=== PATIENT | female | born 1995 | race Hispanic/Latino ===

== ENCOUNTER → 2016-10-02 | Outpatient (CLI) | payer OTHER | LOC: YCFC.O 08:37 | PROVIDERS: ATTEND Nurse Practitioner Family | DX: E03.9 Hypothyroidism, unspecified (principal); E83.52 Hypercalcemia ==

== ENCOUNTER → 2016-10-03 | Outpatient (CLI) | payer OTHER | LOC: RESP 10:25 | PROVIDERS: ATTEND Nurse Practitioner Family | DX: I49.9 Cardiac arrhythmia, unspecified (principal) ==

== ENCOUNTER 2017-02-16 14:16 | Emergency (ER) | payer OTHER ==
[2017-02-16 14:36] VITALS: TEMP 97
--- NOTE | 2017-02-16 14:38 | ED.PDOC ---
History of Present Illness - General Chief Complaint: Problem Stated Complaint: burning and pressure with urine Time Seen by Provider: 02/16/17 14:38 Source: patient Exam Limitations: no limitations - History of Present Illness Initial Comments: Dorota Sifuentes 21 y/o female stated that she had burning/and pressure on urination which started this morning;denies fever chills, flank pain,nausea or vomiting,no vaginal discharge,or pelvic pain Timing/Duration: this morning Quality: mild Onset Location: unknown Radiation: none Activites at Onset: none Prior abdominal problems: none Sexual intercourse history: not active Improving Factors: nothing Worsening Factors: nothing Associated Symptoms: denies symptoms Allergies/Adverse Reactions: Allergies NO KNOWN ALLERGY Allergy (Verified 02/16/17 14:33) Home Medications: Ambulatory Orders Levothyroxine Sodium [Synthroid] 100 mcg PO DAILY #0 02/13/14 Nitrofurantoin Monohydrate Mac [Macrobid] 100 mg PO BID #14 cap 02/16/17 Review of Systems - Review of Systems Constitutional: States: no symptoms reported EENTM: States: no symptoms reported Respiratory: States: no symptoms reported Cardiology: States: no symptoms reported Gastrointestinal/Abdominal: States: no symptoms reported Genitourinary: States: see HPI Musculoskeletal: States: no symptoms reported Skin: States: no symptoms reported Neurological: States: no symptoms reported Endocrine: States: no symptoms reported Hematologic/Lymphatic: States: no symptoms reported Past Medical History (General) - Patient Medical History Hx Seizures: No Hx Stroke: No Hx Dementia: No Hx Asthma: No Hx of COPD: No Hx Cardiac Disorders: No Hx Congestive Heart Failure: No Hx Pacemaker: No Hx Hypertension: No Hx Thyroid Disease: No Hx Diabetes: No Hx Gastroesophageal Reflux: No Hx Renal Disease: No Hx Cancer: No Hx of HIV: No Hx Hepatitis C: No Hx MRSA: No Hx Other PMH: Yes - hypothyroidism Surgical History: no surgical history - Vaccination History Hx Tetanus, Diphtheria Vaccination: Yes Hx Influenza Vaccination: No Hx Pneumococcal Vaccination: No Immunizations Up to Date: Yes - Social History Hx Tobacco Use: No Hx Chewing Tobacco Use: No Hx Alcohol Use: No Hx Substance Use: No Hx Substance Use Treatment: No Hx Depression: No Feels Threatened In Home Enviroment: No Feels Threatened In a Relationship: No Hx Physical Abuse: No Hx Emotional Abuse: No Hx Suspected Abuse: No - Female History Patient is a Female of Child Bearing Age (10 -59 yrs old): Yes Hx Last Menstrual Period: 02/07/17 Patient : No Family Medical History - Family History Mother Family History: No Known Living Status: Still Living Hx Family;Other: Thyroid disease Physical Exam - Physical Exam General Appearance: Alert, No apparent distress Eyes, Ears, Nose, Throat Exam: PERRL/EOMI, normal ENT inspection, TMs normal, pharynx normal Neck: non-tender, full range of motion, supple Cardiovascular/Respiratory: regular rate, rhythm, no M/R/G, normal peripheral pulses, normal breath sounds Gastrointestinal/Abdominal: normal bowel sounds, non tender, soft, no organomegaly Back Exam: normal inspection, no CVA tenderness Extremity: normal range of motion, non-tender, normal inspection, no calf tenderness Neurologic: alert, normal mood/affect, oriented x 3 Skin Exam: normal color, warm/dry Lymphatic: no adenopathy Progress - Progress Progress: 02/16/17 14:47 Vital Signs - 8 hr 02/16/17 14:33 Temperature 97 F L Pulse Rate [ 80 Left Radial] Respiratory 18 Rate Blood Pressure 114/74 [Left Arm] O2 Sat by Pulse 99 Oximetry - Results/Orders Results/Orders: 02/16/17 14:45 URINE CULTURE W/COLONY COUNT Stat Laboratory Results - last 24 hr 02/16/17 14:45 Urine Color Yellow Urine Appearance Cloudy H Urine pH 6.5 Ur Specific [place] 1.010 Urine Protein Trace Urine Glucose (UA) Negative Urine Ketones Negative Urine Blood Moderate H Urine Nitrite Negative Urine Bilirubin Negative Urine Urobilinogen 0.2 Ur Leukocyte Esterase Small H Urine RBC 10-20 H Urine WBC Tntc H Ur Epithelial Cells 0-1 Urine Bacteria 1+ Departure - Departure Clinical Impression: Urinary tract infection Qualifiers: Urinary tract infection type: acute cystitis Hematuria presence: with hematuria Qualified Code(s): N30.01 - Acute cystitis with hematuria Time of Disposition: 15:33 Disposition: Discharge to Home or Self Care Condition: Good Departure Forms: ED Discharge - Pt. Copy, Patient Portal Self Enrollment Instructions: DI for Urinary Tract Infection (UTI) Referrals: Marielle Swan NP [Primary Care Provider] - 1-2 Weeks Prescriptions: Nitrofurantoin Monohydrate Mac [Macrobid] 100 mg PO BID #14 cap Home Medications: Ambulatory Orders Levothyroxine Sodium [Synthroid] 100 mcg PO DAILY #0 02/13/14 Nitrofurantoin Monohydrate Mac [Macrobid] 100 mg PO BID #14 cap 02/16/17 Additional Instructions: Return to emergency room as needed;Follow up with primary md 02/19/2017 call for appointment
[2017-02-16 15:46] VITALS: BP 122/74; O2SAT 98
== END 2017-02-16 15:46 | disposition home or self-care (01) ==
LOC: ER 14:16
DX: N30.01 Acute cystitis with hematuria (principal); E03.9 Hypothyroidism, unspecified; Z79.899 Other long term (current) drug therapy

== ENCOUNTER → 2017-04-22 | Outpatient (CLI) | payer OTHER | END | disposition home or self-care (01) | LOC: LAB.O 09:38 | DX: E03.9 Hypothyroidism, unspecified (principal); R53.83 Other fatigue ==

== ENCOUNTER → 2017-06-17 | Outpatient (CLI) | payer OTHER | END | disposition home or self-care (01) | LOC: LAB.O 14:48 | DX: E03.9 Hypothyroidism, unspecified (principal) ==

== ENCOUNTER → 2017-07-21 | Outpatient (CLI) | payer OTHER | END | disposition home or self-care (01) | LOC: LAB.O 10:26 | PROVIDERS: ATTEND Otolaryngology | DX: E06.3 Autoimmune thyroiditis (principal); E83.52 Hypercalcemia ==

== ENCOUNTER → 2017-08-05 | Outpatient (CLI) | payer OTHER | END | disposition home or self-care (01) | LOC: LAB.O 11:50 | PROVIDERS: ATTEND Otolaryngology | DX: E83.52 Hypercalcemia (principal); E06.3 Autoimmune thyroiditis ==

== ENCOUNTER 2017-09-25 17:12 | Emergency (ER) | payer OTHER ==
[2017-09-25] MEDS ORDERED: IBUPROFEN SUSP 100 MG/5 ML UD PO ONE (18:21)
--- NOTE | 2017-09-25 18:24 | ED.PDOC ---
History of Present Illness - General Chief Complaint: General Stated Complaint: spitting up blood Time Seen by Provider: 09/25/17 18:21 Source: patient Exam Limitations: no limitations - History of Present Illness Initial Comments: PT REPORTS A FEW EPISODES OF SPITTING UP BLOOD WHEN SHE CLEARS HER THROAT. PT HAD A PARATHYROIDECTOMY 1 WEEK AGO AND HAS SEVERAL NOSEBLEEDS SINCE THE SURGERY. PT HAD HER FOLLOW UP APPT TODAY WITH DR. RODRIGUEZ WHO USED SILVER NITRATE TO CAUTERIZE HER NASAL MUCOSA. PT DENIES SOB OR COUGH. Severity: mild Improving Factors: nothing Worsening Factors: nothing Associated Symptoms: other - NOSE BLEEDS Allergies/Adverse Reactions: Allergies NO KNOWN ALLERGY Allergy (Verified 02/16/17 14:33) Home Medications: Ambulatory Orders Levothyroxine Sodium [Synthroid] 125 mcg PO DAILY #0 02/13/14 Review of Systems - Review of Systems Constitutional: Denies: chills, fever EENTM: States: throat pain, other - EPISTAXIS Respiratory: Denies: cough, short of breath Cardiology: Denies: chest pain, palpitations Past Medical History (General) - Patient Medical History Hx Seizures: No Hx Stroke: No Hx Dementia: No Hx Asthma: No Hx of COPD: No Hx Cardiac Disorders: No Hx Congestive Heart Failure: No Hx Pacemaker: No Hx Hypertension: No Hx Thyroid Disease: Yes Hx Diabetes: No Hx Gastroesophageal Reflux: No Hx Renal Disease: No Hx Cancer: No Hx of HIV: No Hx Hepatitis C: No Hx MRSA: No Surgical History: other - PARATHYROIDECTOMY 1 WEEK AGO - Vaccination History Hx Tetanus, Diphtheria Vaccination: Yes Hx Influenza Vaccination: Yes Hx Pneumococcal Vaccination: No - Social History Hx Tobacco Use: No Hx Chewing Tobacco Use: No Hx Alcohol Use: No Hx Substance Use: No Hx Substance Use Treatment: No Hx Depression: No Hx Physical Abuse: No Hx Emotional Abuse: No Hx Suspected Abuse: No - Female History Patient is a Female of Child Bearing Age (10 -59 yrs old): Yes Hx Last Menstrual Period: 02/07/17 Patient : Yes Expected Date of Delivery:: 02/19/18 Hx Gestational Age: 19 Family Medical History - Family History Mother Family History: No Known Living Status: Still Living Hx Family;Other: Thyroid disease Physical Exam - Physical Exam General Appearance: Alert, Comfortable, No apparent distress, Well Developed, Well Groomed, Well Hydrated Ears, Nose, Throat: hearing grossly normal, normal ENT inspection, normal pharynx Neck: full range of motion, normal inspection, other - HORIZONTAL SURGICAL INCISION OVER THE THYROID WITH MINIMAL SURROUNDING TENDERNESS Respiratory: lungs clear, normal breath sounds, no respiratory distress Cardiovascular/Chest: regular rate, rhythm, no murmur Neurologic: alert, normal mood/affect, oriented x 3 Skin Exam: normal color, warm/dry Departure - Departure Clinical Impression: Epistaxis, Sore throat Time of Disposition: 18:28 Disposition: Discharge to Home or Self Care Condition: Good Departure Forms: ED Discharge - Pt. Copy, Patient Portal Self Enrollment Referrals: Domenica Dickey MD [Primary Care Provider] - 1-2 Weeks Home Medications: Ambulatory Orders Levothyroxine Sodium [Synthroid] 125 mcg PO DAILY #0 02/13/14 Additional Instructions: PT ADVISED TO PRESCRIBED PAIN MEDS NEEDED FOR THROAT PAIN.
[2017-09-25 18:54] VITALS: BP 110/63; TEMP 96.3; O2SAT 98
== END 2017-09-25 18:54 | disposition home or self-care (01) ==
LOC: ER 17:12
DX: R04.0 Epistaxis (principal); J02.9 Acute pharyngitis, unspecified

== ENCOUNTER → 2017-09-30 | Outpatient (CLI) | payer OTHER | LOC: LAB.O 12:19 | PROVIDERS: ATTEND Otolaryngology | DX: E21.0 Primary hyperparathyroidism (principal); E83.52 Hypercalcemia ==

== ENCOUNTER 2018-02-20 18:41 | Emergency (ER) | payer OTHER ==
--- NOTE | 2018-02-20 19:22 | ED.PDOC ---
History of Present Illness - General Chief Complaint: General Stated Complaint: left breast tenderness, chills, body aches Time Seen by Provider: 02/20/18 19:15 Source: patient Exam Limitations: no limitations - History of Present Illness Initial Comments: THIS PATIENT DELIVERED A CHILD ONE WEEK AGO, NOW SHE COMES TO THE ED WITH A FEVER OF 103 AND LEFT BREAST PAIN. SHE IS RUNNING A FEVER OF 103.1. Timing/Duration: getting worse Improving Factors: nothing Worsening Factors: nothing Associated Symptoms: fever/chills Allergies/Adverse Reactions: Allergies NO KNOWN ALLERGY Allergy (Verified 02/20/18 19:12) Home Medications: Ambulatory Orders Levothyroxine Sodium [Synthroid] 125 mcg PO DAILY #0 02/13/14 Cefdinir [Omnicef] 300 mg PO BID 10 Days cap 02/20/18 Review of Systems - Review of Systems Constitutional: States: fever EENTM: States: no symptoms reported Respiratory: States: no symptoms reported Cardiology: States: no symptoms reported Gastrointestinal/Abdominal: States: no symptoms reported Genitourinary: States: no symptoms reported Musculoskeletal: States: no symptoms reported Skin: States: no symptoms reported Neurological: States: no symptoms reported Endocrine: States: no symptoms reported Hematologic/Lymphatic: States: no symptoms reported Past Medical History (General) - Patient Medical History Hx Seizures: No Hx Stroke: No Hx Dementia: No Hx Asthma: No Hx of COPD: No Hx Cardiac Disorders: No Hx Congestive Heart Failure: No Hx Pacemaker: No Hx Hypertension: No Hx Thyroid Disease: Yes Hx Diabetes: No Hx Gastroesophageal Reflux: No Hx Renal Disease: No Hx Cancer: No Hx of HIV: No Hx Hepatitis C: No Hx MRSA: No - Vaccination History Hx Tetanus, Diphtheria Vaccination: Yes Hx Influenza Vaccination: Yes Hx Pneumococcal Vaccination: No - Social History Hx Tobacco Use: No Hx Chewing Tobacco Use: No Hx Alcohol Use: No Hx Substance Use: No Hx Substance Use Treatment: No Hx Depression: No Hx Physical Abuse: No Hx Emotional Abuse: No Hx Suspected Abuse: No - Female History Hx Last Menstrual Period: 02/07/17 Patient : Yes Expected Date of Delivery:: 02/19/18 Hx Gestational Age: 19 Family Medical History - Family History Mother Family History: No Known Living Status: Still Living Hx Family;Other: Thyroid disease Physical Exam - Physical Exam General Appearance: Alert, Well Developed, Well Groomed, Well Hydrated, Well Nourished Eye Exam: bilateral normal Ears, Nose, Throat: hearing grossly normal, normal ENT inspection Neck: non-tender, full range of motion, supple Respiratory: chest non-tender, lungs clear, normal breath sounds, no respiratory distress, no accessory muscle use Cardiovascular/Chest: normal peripheral pulses, regular rate, rhythm, no edema, no gallop, no JVD, no murmur Gastrointestinal/Abdominal: normal bowel sounds, non tender, soft, no organomegaly, no pulsatile mass Rectal Exam: deferred Extremity: normal range of motion Neurologic: no motor/sensory deficits, alert Skin Exam: other - BILATERAL BREAST ARE ENGORED, NO OBVIOUS REDNESS AND NO MASSES NOTED Progress - Progress Progress: 02/20/18 19:[address] ENDER RODRIGUEZ-OBGYN- SUGGESTS ROCEPHIN AND OMNICEFF. CALL FOR F/U APPTOINT NEXT WEEK Departure - Departure Clinical Impression: Mastitis, acute Time of Disposition: 19:33 Disposition: Discharge to Home or Self Care Condition: Good Departure Forms: ED Discharge - Pt. Copy, Patient Portal Self Enrollment Referrals: Domenica Dickey MD [Primary Care Provider] - 1-2 Weeks Ender Rodriguez MD [Active Staff] - 1-2 Weeks Prescriptions: Cefdinir [Omnicef] 300 mg PO BID 10 Days cap Home Medications: Ambulatory Orders Levothyroxine Sodium [Synthroid] 125 mcg PO DAILY #0 02/13/14 Cefdinir [Omnicef] 300 mg PO BID 10 Days cap 02/20/18
[2018-02-20] MEDS ORDERED: ACETAMINOPHEN 500 MG TAB PO ONE (19:24)
[2018-02-20] MEDS ORDERED: cefTRIAXone SODIUM 1 GM VIAL IM ONE (19:32)
[2018-02-20] MEDS ORDERED: LIDOCAINE 1% 50 ML VIAL INJ ONE (19:51)
[2018-02-20] MEDS ORDERED: LIDOCAINE 1% 2 ML VIAL INJ ONE (19:53)
[2018-02-22 17:46] VITALS: BP 106/70; TEMP 103.7; O2SAT 97
== END 2018-02-20 20:09 | disposition home or self-care (01) ==
LOC: ER 18:41
DX: N61.0 Mastitis without abscess (principal); E07.9 Disorder of thyroid, unspecified

== ENCOUNTER 2018-03-27 14:32 | Emergency (ER) | payer OTHER ==
[2018-03-27] MEDS ORDERED: ONDANSETRON ODT 8 MG TAB SL ONE (15:41)
[2018-03-27] MEDS ORDERED: ALUM & MAG HYDROX-SIMETHICONE 30 ML, LIDOCAINE VISCOUS 2% 15 ML PO ONE ×2 (15:41)
[2018-03-27] MEDS ORDERED: ALUM & MAG HYDROX-SIMETHICONE 30 ML UD ONE (15:56)
[2018-03-27] MEDS ORDERED: LIDOCAINE HCL 2% (MOUTH-THROAT) 15 ML UD ONE (15:56)
--- NOTE | 2018-03-27 16:10 | RAD ---
EXAM DESCRIPTION: Abdomen Series CLINICAL HISTORY: 23 years Female ,epigastric ruq pain COMPARISON: None. TECHNIQUE: Frontal view chest x-ray and two views of the abdomen. FINDINGS: The cardiomediastinal silhouette appears unremarkable. No consolidating infiltrates or pleural effusions. There is a nodular density in the right lower lung overlying the right anterior sixth rib measuring 0.94 cm which may be a pleural-based lesion. Follow-up chest x-ray in three months or CT chest is recommended. No free air is identified beneath the hemidiaphragms. No dilated loops of bowel to suggest obstruction. No significant calcific densities are identified. IMPRESSION: No acute intra-abdominal plain film abnormality is identified. There is a nodular density in the right lower lung overlying the right anterior sixth rib measuring 0.94 cm which may be a pleural-based lesion. Follow-up chest x-ray in three months or CT chest is recommended. Electronically signed by: Reggie Rooney MD 03/27/2018 4:09 PM CDT
[2018-03-27] MEDS ORDERED: MAGNESIUM SULFATE PREMIX 2GM 2 GM in PREMIX BAG 1 BAG IVPB ONE (16:27)
[2018-03-27] MEDS ORDERED: POTASSIUM CHLORIDE ELIXIR 20 MEQ/15 ML UD PO ONE (16:27)
[2018-03-27] MEDS ORDERED: SODIUM CHLORIDE 0.9% 1000ML 1,000 ML IVS ONE (16:31)
[2018-03-27] MEDS ORDERED: MAGNESIUM SULFATE PREMIX 2GM 50 ML IVPB ONE (16:37)
--- NOTE | 2018-03-27 18:06 | CT ---
EXAM DESCRIPTION: Abdomen/Pelvis w/Contrast CLINICAL HISTORY:23 years Female, epigasstric/ruq pain intermittent 3 weeks upper abdominal pain related to back for 3 weeks Comparison: None TECHNIQUE: Contiguous axial images of the abdomen and pelvis were obtained followed by reconstruction images. This exam was performed according to our departmental dose-optimization program, which includes automated exposure control, adjustment of the mA and/or kV according to patient size and/or use of iterative reconstruction technique. FINDINGS: Lung bases: Lung bases are clear. Heart: Visualized heart is within normal limits in size. Liver:Unremarkable. No focal liver lesion. Gallbladder:Distended gallbladder with mild gallbladder wall thickening and pericholecystic fluid with cholecystitis. Spleen:Unremarkable Pancreas: Pancreas is unremarkable. Adrenal glands:Within normal limits. Kidneys/ureters:Punctate calculus in the right renal midportion. No hydronephrosis. Left kidney punctate calculus in the midportion. Bladder:Unremarkable. Pelvic organs: Nonspecific heterogeneous uterus and left adnexal 2.4 cm cyst, almost certainly benign and trace pelvic fluid. Findings may be physiological given patient's age. Vascular structures: within normal limits Lymph nodes: No abnormal lymph nodes. Stomach/small bowel/colon: Stomach is unremarkable. Small bowel is unremarkable. Colon is unremarkable. Appendix: Appendix is seen and is within normal limits. Bones: No acute osseous abnormality. Soft tissues: Unremarkable.. IMPRESSION: * Distended gallbladder with inflammatory changes consistent with acute cholecystitis. * Nonspecific heterogeneous uterus and left adnexal 2.4 cm cyst, almost certainly benign and trace pelvic fluid. Findings may be physiological given patient's age. Electronically signed by: Craig Crouch MD 03/27/2018 6:05 PM CDT
[2018-03-27] MEDS ORDERED: PIPERACILLIN/TAZOBACTAM 3.375 GM in SODIUM CHLORIDE 0.9% 100ML 100 ML IVPB ONE (18:16)
[2018-03-27] MEDS ORDERED: PIPERACILLIN/TAZOBACTAM 3.375 GM VIAL IVPB ONE (18:18)
[2018-03-27] MEDS ORDERED: SODIUM CHLORIDE 0.9% 100ML 100 ML IVPB ONE (18:19)
--- NOTE | 2018-03-27 18:33 | ED.PDOC ---
History of Present Illness - General Chief Complaint: GI Problem Stated Complaint: epigastric pain Time Seen by Provider: 03/27/18 14:36 Source: patient Exam Limitations: no limitations - History of Present Illness Initial Comments: the patient is a 23-year-old female presenting to the emergency room secondary to moderate epigastric and right upper quadrant as well as mild substernal pain today. the patient has had intermittent episodes of milder right upper quadrant pain for the last 3 weeks. She thinks she may have had fever this morning and did take some Tylenol and is afebrile upon arrival here. Examination shows that she is significantly tender to palpation in the right upper ointment. She does have guarding. She has had some nausea and a couple of episodes of a small amount of vomitus. She does not appear dehydrated. She does not appear septic at this point. She does have a fairly large amount of pain upon arrival. She does not think that she has had any gallbladder problems in the past. Timing/Duration: unsure Severity: moderate Improving Factors: nothing Worsening Factors: eating Associated Symptoms: loss of appetite, malaise, nausea/vomiting Allergies/Adverse Reactions: Allergies NO KNOWN ALLERGY Allergy (Verified 03/27/18 15:16) Home Medications: Ambulatory Orders Levothyroxine Sodium [Synthroid] 125 mcg PO DAILY #0 02/13/14 Review of Systems - Review of Systems Constitutional: States: fever, malaise EENTM: States: no symptoms reported Respiratory: States: no symptoms reported Cardiology: States: chest pain Gastrointestinal/Abdominal: States: abdominal pain, nausea, vomiting Genitourinary: States: no symptoms reported Musculoskeletal: States: other - the pain does radiate to the right side of the back Skin: States: no symptoms reported Neurological: States: no symptoms reported Endocrine: States: no symptoms reported All other Systems: No Change from Baseline Past Medical History (General) - Patient Medical History Hx Seizures: No Hx Stroke: No Hx Dementia: No Hx Asthma: No Hx of COPD: No Hx Cardiac Disorders: No Hx Congestive Heart Failure: No Hx Pacemaker: No Hx Hypertension: No Hx Thyroid Disease: Yes Hx Diabetes: No Hx Gastroesophageal Reflux: No Hx Renal Disease: No Hx Cancer: No Hx of HIV: No Hx Hepatitis C: No Hx MRSA: No Surgical History: other - Vaccination History Hx Tetanus, Diphtheria Vaccination: Yes Hx Influenza Vaccination: Yes Hx Pneumococcal Vaccination: No - Social History Hx Tobacco Use: No Hx Chewing Tobacco Use: No Hx Alcohol Use: No Hx Substance Use: No Hx Substance Use Treatment: No Hx Depression: No Hx Physical Abuse: No Hx Emotional Abuse: No Hx Suspected Abuse: No - Female History Hx Last Menstrual Period: 02/07/17 Patient : Yes Expected Date of Delivery:: 02/19/18 Hx Gestational Age: 19 Family Medical History - Family History Mother Family History: No Known Living Status: Still Living Hx Family;Other: Thyroid disease Physical Exam - Physical Exam General Appearance: Alert, Comfortable, No apparent distress Eye Exam: bilateral normal Ears, Nose, Throat: hearing grossly normal, normal ENT inspection, normal pharynx Neck: non-tender, full range of motion, supple Respiratory: lungs clear, normal breath sounds, no respiratory distress, no accessory muscle use Cardiovascular/Chest: normal peripheral pulses, regular rate, rhythm, no edema Peripheral Pulses: radial,right: 2+, radial,left: 2+, dorsalis pedis,right: 2+, dorsalis pedis,left: 2+ Gastrointestinal/Abdominal: non tender, soft Rectal Exam: deferred Back Exam: no CVA tenderness, no vertebral tenderness Extremity: normal range of motion, non-tender, normal inspection, no pedal edema , normal capillary refill Neurologic: bleacher groundwood pulp II-XII nml as tested, alert, normal mood/affect, oriented x 3 Skin Exam: normal color Comments: Vital Signs - 24 hr 03/27/18 03/27/18 15:10 16:30 Temperature 98.6 F Pulse Rate [ 73 75 pulse ox] Respiratory 18 18 Rate Blood Pressure 144/93 143/92 [left arm] O2 Sat by Pulse 100 99 Oximetry Progress - Progress Progress: 03/27/18 18:36 the patient's 23-year-old female presented to emergency room with what appears to be acute cholecystitis. A blood culture has been taken. Zosyn has been started. The patient will be made nothing by mouth. We do not have ultrasound or surgeon available here this weekend. The patient is going to be transferred to the [facility] emergency room for further workup as per Dr. Nicholson recommendation including an ultrasound. the patient was also given some potassium and magnesium as well as a liter of IV fluids here. Transferring for higher level of care. - Results/Orders Results/Orders: acute abdominal series is benign. CT scan of abdomen and pelvis shows changes consistent with acute cholecystitis. EKG shows some poor R-wave progression but no acute ST segment changes concerning for acute ischemia. Laboratory Tests 03/27/18 03/27/18 03/27/18 15:52 15:52 15:52 WBC 10.1 RBC 4.78 Hgb 12.5 Hct 38.7 MCV 80.9 L MCH 26.2 L MCHC 32.4 L RDW 13.6 Plt Count 243 MPV 8.2 Absolute Neuts (auto) 7.60 H Absolute Lymphs (auto) 1.60 Absolute Monos (auto) 0.80 Absolute Eos (auto) 0.10 Absolute Basos (auto) 0.00 Neutrophils % 74.8 Lymphocytes % 16.3 L Monocytes % 7.7 Eosinophils % 1.0 Basophils % 0.2 PT 10.2 INR 1.02 PTT (SP) 26.0 Sodium 137 Potassium 3.3 L Chloride 101 Carbon Dioxide 28 Anion Gap 11.3 L BUN 11 Creatinine 0.43 L BUN/Creatinine Ratio 25.6 H Random Glucose 97 Serum Osmolality 273.1 L Lactic Acid Calcium 9.5 Magnesium 1.4 L Total Bilirubin 0.6 AST 16 ALT 14 Alkaline Phosphatase 78 Creatine Kinase 24 L CK-MB (CK-2) 0.4 CK-MB (CK-2) % Not Reportable Troponin I < 0.02 B-Natriuretic Peptide 15.3 Serum Total Protein 8.0 Albumin 4.2 Globulin 3.8 H Albumin/Globulin Ratio 1.1 Amylase 76 Lipase 18 L Urine Color Urine Appearance Urine pH Ur Specific [place] Urine Protein Urine Glucose (UA) Urine Ketones Urine Blood Urine Nitrite Urine Bilirubin Urine Urobilinogen Ur Leukocyte Esterase Urine RBC Urine WBC Ur Epithelial Cells Urine Bacteria Urine HCG, Qual 03/27/18 03/27/18 03/27/18 15:52 15:52 15:52 WBC RBC Hgb Hct MCV MCH MCHC RDW Plt Count MPV Absolute Neuts (auto) Absolute Lymphs (auto) Absolute Monos (auto) Absolute Eos (auto) Absolute Basos (auto) Neutrophils % Lymphocytes % Monocytes % Eosinophils % Basophils % PT INR PTT (SP) Sodium Potassium Chloride Carbon Dioxide Anion Gap BUN Creatinine BUN/Creatinine Ratio Random Glucose Serum Osmolality Lactic Acid 0.8 Calcium Magnesium Total Bilirubin AST ALT Alkaline Phosphatase Creatine Kinase CK-MB (CK-2) CK-MB (CK-2) % Troponin I B-Natriuretic Peptide Serum Total Protein Albumin Globulin Albumin/Globulin Ratio Amylase Lipase Urine Color Yellow Urine Appearance Clear Urine pH 7.0 Ur Specific [place] 1.020 Urine Protein Trace Urine Glucose (UA) Negative Urine Ketones Negative Urine Blood Trace-intact H Urine Nitrite Negative Urine Bilirubin Negative Urine Urobilinogen 0.2 Ur Leukocyte Esterase Negative Urine RBC 0-1 Urine WBC 0 Ur Epithelial Cells 5-10 Urine Bacteria Rare Urine HCG, Qual Negative Departure - Departure Clinical Impression: Acute cholecystitis Disposition: Transfer to Hospital Referrals: Ken Walsh MD [Primary Care Provider] - 1-2 Weeks Home Medications: Ambulatory Orders Levothyroxine Sodium [Synthroid] 125 mcg PO DAILY #0 02/13/14 Transfer to Outside Facility - Transfer Information Accepting Provider:: yolanda hyatt Accepting Facility: [facility] Reason for Transfer: required specialist not available
[2018-03-27 18:46] VITALS: BP 145/101; TEMP 98.7; O2SAT 100
== END 2018-03-27 19:00 | disposition short-term general hospital (02) ==
LOC: ER 14:32
DX: K81.9 Cholecystitis, unspecified (principal); R94.31 Abnormal electrocardiogram [ECG] [EKG]; E07.9 Disorder of thyroid, unspecified; Z79.899 Other long term (current) drug therapy
CPT/HCPCS: 36415; 74019; 74177; 80053; 81001; 81025; 82150; 82550; 82553; 83605; 83690; 83735; 83880; 84484; 85025; 85610; 85651; 85730; 87040; 93005; J2543; J3475; J7030; J7050

== ENCOUNTER 2018-04-06 13:52 | Emergency (ER) | payer OTHER ==
[2018-04-06] MEDS ORDERED: ALUM & MAG HYDROX-SIMETHICONE 30 ML, LIDOCAINE VISCOUS 2% 15 ML PO ONE ×2 (14:18)
--- NOTE | 2018-04-06 14:22 | ED.PDOC ---
History of Present Illness - General Chief Complaint: Abdominal Pain Stated Complaint: Epigastric discomfort Time Seen by Provider: 04/06/18 14:11 Source: patient Exam Limitations: no limitations - History of Present Illness Initial Comments: Patient presents with infrasternal pain that radiates to the back. It is cramping in nature, no relation to when she eats or defecates, and tends to be worse at night. She was here 4 days ago for the same and received a CT scan. She was sent to [facility] where she had a cholecystectomy. She has had some nausea but no vomiting. She has had diarrhea often since her surgery that she believes is from the antiobiotics. No urinary symptoms. Last bm was yesterday and was loose and non-bloody. Last meal was this morning. No fevers. No other complaints. Timing/Duration: changing over time, intermittent Severity: moderate Improving Factors: nothing Worsening Factors: nothing Associated Symptoms: other - as in HPI Allergies/Adverse Reactions: Allergies NO KNOWN ALLERGY Allergy (Verified 03/27/18 15:16) Home Medications: Ambulatory Orders Levothyroxine Sodium [Synthroid] 125 mcg PO DAILY #0 02/13/14 Review of Systems - Review of Systems Constitutional: States: no symptoms reported EENTM: States: no symptoms reported Respiratory: States: no symptoms reported Cardiology: States: no symptoms reported Gastrointestinal/Abdominal: States: see HPI Genitourinary: States: no symptoms reported Musculoskeletal: States: no symptoms reported Skin: States: no symptoms reported Neurological: States: no symptoms reported Endocrine: States: no symptoms reported Hematologic/Lymphatic: States: no symptoms reported Past Medical History (General) - Patient Medical History Hx Seizures: No Hx Stroke: No Hx Dementia: No Hx Asthma: No Hx of COPD: No Hx Cardiac Disorders: No Hx Congestive Heart Failure: No Hx Pacemaker: No Hx Hypertension: No Hx Thyroid Disease: Yes - parathyroidectomy Hx Diabetes: No Hx Gastroesophageal Reflux: No Hx Renal Disease: No Hx Cancer: No Hx of HIV: No Hx Hepatitis C: No Hx MRSA: No Surgical History: cholecystectomy - Vaccination History Hx Tetanus, Diphtheria Vaccination: Yes Hx Influenza Vaccination: Yes - 2017 Hx Pneumococcal Vaccination: No - Social History Hx Tobacco Use: No Hx Chewing Tobacco Use: No Hx Alcohol Use: No Hx Substance Use: No Hx Substance Use Treatment: No Hx Depression: No Hx Physical Abuse: No Hx Emotional Abuse: No Hx Suspected Abuse: No - Female History Patient is a Female of Child Bearing Age (10 -59 yrs old): Yes Hx Last Menstrual Period: 02/07/17 Patient : No Expected Date of Delivery:: 02/19/18 Hx Gestational Age: 19 Family Medical History - Family History Mother Family History: No Known Living Status: Still Living Hx Family;Other: Thyroid disease Physical Exam - Physical Exam General Appearance: Alert Eye Exam: bilateral normal Ears, Nose, Throat: normal ENT inspection Neck: non-tender, full range of motion, supple Respiratory: chest non-tender, lungs clear, normal breath sounds Cardiovascular/Chest: normal peripheral pulses, regular rate, rhythm, no edema Gastrointestinal/Abdominal: normal bowel sounds, soft, tenderness - Infrasternal tenderness Back Exam: no CVA tenderness Extremity: normal range of motion, non-tender 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, no motor/sensory deficits, alert, normal mood/affect, oriented x 3 Skin Exam: normal color Lymphatic: no adenopathy Progress - Progress Progress: 04/06/18 16:18 Laboratory Tests 04/06/18 04/06/18 14:24 14:24 WBC 8.5 RBC 4.72 Hgb 12.3 Hct 37.8 MCV 80.1 L MCH 26.1 L MCHC 32.6 L RDW 13.5 Plt Count 570 H MPV 7.1 L Absolute Neuts (auto) 6.50 Absolute Lymphs (auto) 1.10 Absolute Monos (auto) 0.70 Absolute Eos (auto) 0.20 Absolute Basos (auto) 0.00 Neutrophils % 76.2 Lymphocytes % 13.3 L Monocytes % 7.9 Eosinophils % 2.0 Basophils % 0.6 Sodium 140 Potassium 3.3 L Chloride 101 Carbon Dioxide 29 Anion Gap 13.3 BUN 7 Creatinine 0.53 L BUN/Creatinine Ratio 13.2 Random Glucose 106 H Serum Osmolality 277.8 Calcium 9.9 Total Bilirubin 1.9 H AST 820 H ALT 350 H Alkaline Phosphatase 661 H Serum Total Protein 8.6 H Albumin 3.9 Globulin 4.7 H Albumin/Globulin Ratio 0.8 L Lipase 43 Patient had elevated LFTs. She did not get any benefit from a GI Cocktail. I contacted Dr. Leija who was certified control systems technician for the surgical group that did her cholecystectomy and it was recommended to send her to [facility] for further workup. Possibilities include a retained gallstone or bile leak. The patient told me that she had already taken her antibiotic today so she was not started on anything at this time. She was also afebrile with a normal wbc. She was given morphine 4 mg IV x one and transferred to [facility]. Departure - Departure Clinical Impression: Abdominal pain Disposition: Transfer to Hospital Condition: Fair Departure Forms: ED Discharge - Pt. Copy, Patient Portal Self Enrollment Instructions: DI for Abdominal Pain-Adult Diet: other - NPO Activity: as per physical therapy Referrals: Ken Walsh MD [Primary Care Provider] - 1-2 Weeks Home Medications: Ambulatory Orders Levothyroxine Sodium [Synthroid] 125 mcg PO DAILY #0 02/13/14
[2018-04-06] MEDS ORDERED: LIDOCAINE HCL 2% (MOUTH-THROAT) 15 ML UD ONE (14:27)
[2018-04-06] MEDS ORDERED: ALUM & MAG HYDROX-SIMETHICONE 30 ML UD ONE (14:27)
[2018-04-06] MEDS ORDERED: MORPHINE SULFATE INJ 10 MG/ML VIAL IV ONE (15:59)
[2018-04-06 16:39] VITALS: TEMP 101.2
[2018-04-06] MEDS ORDERED: PIPERACILLIN/TAZOBACTAM 3.375 GM in SODIUM CHLORIDE 0.9% 100ML 100 ML IVPB ONE ×2 (16:39→16:40)
[2018-04-06] MEDS ORDERED: PIPERACILLIN/TAZOBACTAM 3.375 GM VIAL IVPB ONE (16:41)
[2018-04-06] MEDS ORDERED: SODIUM CHLORIDE 0.9% 100ML 100 ML IVPB ONE (16:41)
[2018-04-06 18:07] VITALS: BP 114/73; O2SAT 98
== END 2018-04-06 18:13 | disposition short-term general hospital (02) ==
LOC: ER 13:52
DX: R10.13 Epigastric pain (principal); R19.7 Diarrhea, unspecified; R11.0 Nausea; E89.2 Postprocedural hypoparathyroidism; Z79.899 Other long term (current) drug therapy; Z90.49 Acquired absence of other specified parts of digestive tract
CPT/HCPCS: 36416; 80053; 83690; 85025; 87040; J2270; J2543; J7050

== ENCOUNTER → 2018-09-07 | Outpatient (CLI) | payer OTHER | LOC: LAB.O 10:46 | PROVIDERS: ATTEND Family Medicine | DX: E03.9 Hypothyroidism, unspecified (principal) ==